=== PATIENT | male | born 1985 | race Caucasian/White ===

== ENCOUNTER 2018-11-15 22:07 | Emergency (ER) | payer SELFPAY ==
[~2018-11-15] VITALS: Ht 167.6 cm; Wt 132.0 kg
[2018-11-16] MEDS ORDERED: IBUPROFEN 800MG TABLET PO ONE (01:00)
[2018-11-16 02:19] VITALS: BP 134/83
== END 2018-11-16 02:20 | disposition home or self-care (01) ==
LOC: ER 22:07
DX: S20.211A Contusion of right front wall of thorax, initial encounter (principal); Y08.89XA Assault by other specified means, initial encounter; Y93.89 Activity, other specified; Y92.89 Other specified places as the place of occurrence of the external cause; Y99.8 Other external cause status
CPT/HCPCS: 71101; 99283